=== PATIENT | female | born 1970 | race Caucasian/White ===

== ENCOUNTER 2019-12-15 10:57 | Emergency (ER) | payer OTHER ==
[~2019-12-15] VITALS: Ht 170.2 cm; Wt 56.3 kg
[2019-12-15 12:00] LABS: CALCIUM 9.3 mg/dL (8.5-10.1); GFR 59.2
[2019-12-15 12:06] LABS: ALBUMIN 3.6 g/dL (3.4-5.0); TOTAL BILIRUBIN 0.6 mg/dL (0.2-1.0); TOTAL PROTEIN 7.3 g/dL (6.4-8.2)
[2019-12-15] MEDS ORDERED: chlordiazePOXIDE HCL 25 MG CAPSULE PO ONE ×2 (12:10→13:35)
[2019-12-15 12:12] LABS: BASO # 0.1 x10^3/uL (0.0-0.2); BASO % 3 % (0-3); EOS % 1 % (0-3); HEMATOCRIT 43.9 % (36.0-47.0); HEMOGLOBIN 15.7 g/dL (12.0-15.5); LYMPH # 0.9 x10^3/uL (1.0-4.8); LYMPH % 25 % (24-48); MEAN CORPUSCULAR HEMOGLOBIN 42 pg (25-35); MEAN CORPUSCULAR HGB CONC 36 g/dL (31-37); MEAN CORPUSCULAR VOLUME 117 fL (79-100); MONO # 0.5 x10^3/uL (0.0-1.1); MONO % 13 % (0-9); NEUT # 2.2 x10^3uL (1.8-7.7); NEUT % 58 % (31-73); PLATELET COUNT 199 x10^3/uL (140-400); RED BLOOD COUNT 3.76 x10^6/uL (3.50-5.40); RED CELL DISTRIBUTION WIDTH 16.9 % (11.5-14.5); WHITE BLOOD COUNT 3.7 x10^3/uL (4.0-11.0)
[2019-12-15 12:22] LABS: PLT ESTIMATE ADEQUATE (ADEQUATE)
[2019-12-15 12:59] LABS: BILIRUBIN,URINE NEG (NEG); CLARITY,URINE CLEAR; COLOR,URINE YELLOW; GLUCOSE,URINE NEG (NEG)
[2019-12-15 13:00] LABS: BACTERIA,URINE 0 /HPF (0-FEW); HYALINE CASTS, URINE FEW /HPF; NITRITE,URINE NEG (NEG); SQUAMOUS EPITHELIAL CELL,UR FEW /LPF; UROBILINOGEN,URINE 0.2 mg/dL (0.2 mg/dL)
[2019-12-15] MEDS ORDERED: IV NORMAL SALINE 1,000ML 1,000 ML IV ONE (13:40)
[2019-12-15 14:06] LABS: PREG TEST PT QUAL POSITIVE (NEG)
[2019-12-15] MEDS ORDERED: CHLO25CA9 PO (15:04)
[2019-12-15 15:06] VITALS: BP 151/90
--- NOTE | 2019-12-15 16:03 | PHYS DOC ---
Past History Past Medical History: Alcoholism, Hypertension Past Surgical History: No Surgical History Alcohol Use: Heavy Adult General Chief Complaint Chief Complaint: WITHDRAWAL HPI HPI Patient is a 49 year old female who presents with alcohol withdrawal symptoms. Patient is feeling anxious, shaky, has a headache, and is nauseous. She has been through withdrawal before. Her last drink was at 4 AM, however she only took a shot at that time. Prior to that she had not been drinking for the last 12 hours. She has been on a binge over the last several days. She typically drinks 2 pints a day. She has never had seizures or hallucinations with withdrawal previously. She is not interested in inpatient rehab at this time. Review of Systems Review of Systems General: Denies fever, chills, sweats, fatigue Eyes: Denies drainage, blurred vision HENT: Denies rhinorrhea, sore throat Respiratory: Denies cough, shortness of breath, wheezing Cardiac: Denies edema, palpitations, chest pain GI: Denies abdominal pain, N/V MSK: Denies back pain, neck pain Skin: Denies rash, jaundice Neuro: Reports headache, dizziness Psychiatric: Denies SI/HI reports anxiety Current Medications Current Medications Current Medications Medications (Trade) Dose Ordered Sig/Virgie Start Time Stop Time Status Last Admin Dose Admin Chlordiazepoxide (Librium) 25 mg 1X ONCE 12/15/19 13:35 12/15/19 13:36 DC 12/15/19 13:44 25 MG Sodium Chloride 1,000 ml @ 1,000 mls/hr 1X ONCE 12/15/19 13:40 12/15/19 14:39 DC 12/15/19 13:44 1,000 MLS/HR Allergies Allergies Allergies Coded Allergies Type Severity Reaction Last Updated Verified bacitracin Allergy Unknown 12/15/19 Yes neomycin Allergy Unknown 12/15/19 Yes polymyxin B Allergy Unknown 12/15/19 Yes Physical Exam Physical Exam Constitutional: Well developed, well nourished, Cooperative, anxious HEENT: Normocephalic, atraumatic, oropharynx dry, EOMI, PERRL, no drainage from eyes, normal conjunctiva Neck: Supple, normal range of motion, no stridor Cardiovascular: Tachycardia, 2+ radial pulses bilaterally, no edema Respiratory: CTA bilaterally, no respiratory distress, no wheezing/crackles Abdomen: Soft, nontender, nondistended, no masses Skin: Warm, dry, intact Extremities: No obvious deformities Neurologic: Alert and Oriented x3, motor and sensory function grossly normal, no focal deficits Psychologic: Normal affect, normal judgment, anxious no SI/HI Current Patient Data Vital Signs Vital Signs Date Time Temp Pulse Resp B/P (MAP) Pulse Ox O2 Delivery O2 Flow Rate FiO2 12/15/19 15:06 100 16 151/90 (110) 98 Room Air 12/15/19 11:12 98.7 Lab Results Laboratory Tests Test 12/15/19 11:36 12/15/19 12:22 12/15/19 12:31 White Blood Count 3.7 x10^3/uL (4.0-11.0) L Red Blood Count 3.76 x10^6/uL (3.50-5.40) Hemoglobin 15.7 g/dL (12.0-15.5) H Hematocrit 43.9 % (36.0-47.0) Mean Corpuscular Volume 117 fL (79-100) H Mean Corpuscular Hemoglobin 42 pg (25-35) H Mean Corpuscular Hemoglobin Concent 36 g/dL (31-37) Red Cell Distribution Width 16.9 % (11.5-14.5) H Platelet Count 199 x10^3/uL (140-400) Neutrophils (%) (Auto) 58 % (31-73) Lymphocytes (%) (Auto) 25 % (24-48) Monocytes (%) (Auto) 13 % (0-9) H Eosinophils (%) (Auto) 1 % (0-3) Basophils (%) (Auto) 3 % (0-3) Neutrophils # (Auto) 2.2 x10^3uL (1.8-7.7) Lymphocytes # (Auto) 0.9 x10^3/uL (1.0-4.8) L Monocytes # (Auto) 0.5 x10^3/uL (0.0-1.1) Eosinophils # (Auto) 0.0 x10^3/uL (0.0-0.7) Basophils # (Auto) 0.1 x10^3/uL (0.0-0.2) Platelet Estimate Adequate (ADEQUATE) Macrocytosis Present Maternal Serum HCG Beta Subunit 8 mIU/mL (0-6) H Sodium Level 137 mmol/L (136-145) Potassium Level 3.0 mmol/L (3.5-5.1) L Chloride Level 98 mmol/L (98-107) Carbon Dioxide Level 23 mmol/L (21-32) Anion Gap 16 (6-14) H Blood Urea Nitrogen 8 mg/dL (7-20) Creatinine 1.0 mg/dL (0.6-1.0) Estimated GFR (Cockcroft-Gault) 59.2 BUN/Creatinine Ratio 8 (6-20) Glucose Level 111 mg/dL (70-99) H Calcium Level 9.3 mg/dL (8.5-10.1) Total Bilirubin 0.6 mg/dL (0.2-1.0) Aspartate Amino Transferase (AST) 304 U/L (15-37) H Alanine Aminotransferase (ALT) 124 U/L (14-59) H Alkaline Phosphatase 100 U/L (46-116) Total Protein 7.3 g/dL (6.4-8.2) Albumin 3.6 g/dL (3.4-5.0) Albumin/Globulin Ratio 1.0 (1.0-1.7) Serum Test, Qualitative Positive (NEG) Ethyl Alcohol Level 73 mg/dL (0-10) H Urine Collection Type Unknown Urine Color Yellow Urine Clarity Clear Urine pH 6.0 Urine Specific [place] 1.020 Urine Protein 100 mg/dl (NEG-TRACE) Urine Glucose (UA) Neg mg/dL (NEG) Urine Ketones (Stick) 15 mg/dL (NEG) Urine Blood Trace (NEG) Urine Nitrite Neg (NEG) Urine Bilirubin Neg (NEG) Urine Urobilinogen Dipstick 0.2 mg/dL (0.2 mg/dL) Urine Leukocyte Esterase Neg (NEG) Urine RBC 1-2 /HPF (0-2) Urine WBC 1-4 /HPF (0-4) Urine Squamous Epithelial Cells Few /LPF Urine Bacteria 0 /HPF (0-FEW) Urine Hyaline Casts Few /HPF Urine Mucus Slight /LPF POC Urine HCG, Qualitative Borderline hcg level EKG EKG [] Radiology/Procedures Radiology/Procedures [] Course & Med Decision Making Course & Med Decision Making Pertinent Labs and Imaging studies reviewed. (See chart for details) Patient is a 49-year-old female who presents to the emergency room complaining of withdrawal symptoms. Patient is mildly tachycardic but otherwise has normal vitals. She does appear to be shaky and anxious. She was given Librium here in the emergency room. She does have mild elevated liver enzymes however she does not require admission for this emergently. Patient's test was positive. Beta hCG was ordered and was 8. Patient states she is a lesbian and has not had sex with anyone. It is likely she is not . She is going to stay with family who can help her with her librium. Patient's test results and vitals while in the ED were fully reviewed and discussed with the patient. Patient is stable and at this time does not need admission to the hospital. We have discussed strict return precautions and the importance of following up with their Primary Care Physician. Patient stated understanding and was given an opportunity to ask any questions. Dragon Disclaimer Dragon Disclaimer This electronic medical record was generated, in whole or in part, using a voice recognition dictation system. Departure Departure: Impression: Primary Impression: Alcohol withdrawal Disposition: HOME/RESIDENCE PRIOR TO ADM Condition: STABLE Patient Instructions: Alcoholic Liver Disease, [id number], Alcohol Withdrawal Scripts Chlordiazepoxide Hcl (CHLORDIAZEPOXIDE HCL) 25 Mg Capsule 25 MG PO Q8HRS for withdrawal for 5 Days, #15 CAP Prov: ROWAN FRANCOIS MD 12/15/19 ROWAN FRANCOIS MD Dec 15, 2019 16:02
== END 2019-12-15 15:13 | disposition home or self-care (01) ==
LOC: ER 10:57
DX: O99.311 Alcohol use complicating pregnancy, first trimester (principal); F10.239 Alcohol dependence with withdrawal, unspecified; I10 Essential (primary) hypertension; Z3A.00 Weeks of gestation of pregnancy not specified; Z88.1 Allergy status to other antibiotic agents; Z88.8 Allergy status to other drugs, medicaments and biological substances; Y90.3 Blood alcohol level of 60-79 mg/100 ml
CPT/HCPCS: 36415; 80053; 81001; 81025; 84702; 84703; 85025; 96360; 96361; 99285; G0480; J7030